=== PATIENT | female | born 1975 | race Caucasian/White ===

== ENCOUNTER 2021-01-24 09:04 | Outpatient (CLI) | payer OTHER, SELFPAY ==
--- NOTE | ~2021-01-24 | CT_ITS ---
EXAMINATION: CT abdomen pelvis w con DATE: 01/24/2021 09:58 INDICATION: Right lower quadrant abdominal pain, pelvic and perineal pain TECHNIQUE: Computed tomography (CT) of the abdomen and pelvis was performed with 100 cc Omnipaque 350 intravenous contrast. Automated exposure control and iterative reconstruction technique were employe d. Exam dose: 390.52 mGy-cm total exam DLP. COMPARISON: None. FINDINGS: The lung bases are clear of infiltrate or consolidation. Normal heart size. No pericardial or pleural effusion. The liver, gallbladder, bile ducts, spleen, pancreas and pancreatic duct appear normal. Normal morphology of the adrenal glands. No renal mass lesion or urinary tract calculus or hydroureteronephrosis. The urinary bladder is unrem arkable. There is uterine enlargement. Prominently calcified approximately 6 cm fibroid of the uterine fundus is noted. Bilateral ovarian follicles are noted. There is mild free fluid in the right adnexal area and anterio r and posterior cul-de-sacs. Normal caliber of the abdominal aorta. No intraperitoneal or retroperitoneal or pelvic mass lesion or adenopathy or ascites is detected. There are some nondilated small bowel segments with air fluid levels. The appendix is not clearly juanito ntified. No bowel obstruction or bowel wall thickening or pneumoperitoneum. There is a transitional lumbosacral vertebra and severe degenerative disc disease at the interspace i mmediately above this level. IMPRESSION: Mild free fluid in the right adnexal area and anterior and posterior cul-de-sacs. Bilate ral ovarian follicular cysts Large calcified uterine fibroid The appendix is not clearly identified; clinical correlation is advised Mild adynamic ileus Reviewed, dictated and finalized at [facility]. Reviewed, dictated and finalized at location [facility]. IMPRESSION: Mild free fluid in the right adnexal area and anterior and posteri or cul-de-sacs. Bilateral ovarian follicular cysts Large calcified uterine fibroid The appendix is not clearly identified; clinical correlation is advised Mild adynamic ileus
== END 2021-01-24 09:05 | disposition home or self-care (01) ==
PROVIDERS: PCP Family Medicine; Visit Provider Nurse Practitioner Obstetrics & Gynecology
DX: R10.2 Pelvic and perineal pain (principal); N83.02 Follicular cyst of left ovary; N83.01 Follicular cyst of right ovary; D25.9 Leiomyoma of uterus, unspecified
CPT/HCPCS: 74177; Q9967

== ENCOUNTER 2022-10-19 19:06 | Emergency (ER) | payer MEDICAID, SELFPAY ==
[2022-10-19 19:14] VITALS: BP 126/59; PULSE 106; RESP 19; TEMP 36.5; O2SAT 98
--- NOTE | 2022-10-19 19:41 | ED.WOUNDLAC ---
HPI - Wound/Laceration General Chief Complaint: Wound/Laceration Stated Complaint: left hand lac (thumb) Time Seen by Provider: 10/19/22 19:32 Source: patient and RN notes reviewed Mode of arrival: ambulatory Limitations: no limitations History of Present Illness HPI narrative: This is a a 47 year old female with right hand dominant who presents for evaluation of left hand laceration. She states she was trying to grab a piece of broken glass and she cut the finger web between her left thumb and index finger. This occurred at 1755. She thinks her last tetanus has been in past 5 years. Denies numbness or tingling. Related Data Home Medications Medication Instructions Recorded Confirmed No Home Medications 12/27/20 12/27/20 Allergies Allergy/AdvReac Type Severity Reaction Status Date / Time No Known Allergies Allergy Verified 12/27/20 13:01 Review of Systems Review of Systems: All systems reviewed & are unremarkable except as noted in HPI and below PMFSH Past Medical History Medical History Acute bronchitis due to other specified organisms Acute upper respiratory infection, unspecified Bipolar 2 disorder Bitten or stung by nonvenomous insect and other nonvenomous arthropods, initial encounter BMI 28.0-28.9,adult Cellulitis of left lower extremity Dietary counseling and surveillance (04/24/15) Encounter for screening for lipoid disorders Left elbow pain Routine physical examination Weight loss Family History Family History Mother Family history of malignant neoplasm of breast in first degree relative Mental disorder Father No problems noted. 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 Gender identity (if verbalized by the patient): Female Exam Const: General: no acute distress and alert Orientation/consciousness: patient oriented x3 HENMT: Head: normal to inspection Eyes: EOM: EOMs intact bilaterally Resp: Effort & Inspection: normal respiratory effort Skin: Wounds: wounds noted (left hand laceration 2 cm web 1st/2nd finger, no ex) Neuro: General: patient oriented x3, moves all extremities and CN's II-XI intact bilaterally Extrem: Other: FROM, irregular laceration to finger web in between 1st and 2nd finger on left hand, no bleeding Psych: Mental Status: mental status grossly normal Affect: normal affect Attitude: cooperative Course Vital Signs Vital signs: Vital Signs Temperature 97.7 F 10/19/22 19:14 Pulse Rate 106 H 10/19/22 19:14 Respiratory Rate 19 10/19/22 19:14 Blood Pressure 126/59 L 10/19/22 19:14 Pulse Oximetry 98 10/19/22 19:14 Oxygen Delivery Room Air 10/19/22 19:14 Temperature 97.4 F L 10/19/22 21:12 Pulse Rate 83 10/19/22 21:12 Respiratory Rate 16 10/19/22 21:12 Blood Pressure 112/58 L 10/19/22 21:12 Pulse Oximetry 97 10/19/22 21:12 Oxygen Delivery Room Air 10/19/22 19:14 Procedures Laceration Laceration 1: Date: 10/19/22 Time: 21:01 Site: hand Side (If applicable): left Size (cm): 2 Description: flap Depth: simple, single layer Local Anesthetic: lidocaine 1% Amount of anesthesia used (mL): 2 Pre-repair: wound explored and irrigated ====== Skin Level ====== Skin layer closed with: prolene Size (cm): 4-0 Number of sutures: 3
[2022-10-19] MEDS: IBUPROFEN 600 MG TABLET PO (19:56)
[2022-10-19 21:12] VITALS: BP 112/58; PULSE 83; RESP 16; TEMP 36.3; O2SAT 97
== END 2022-10-19 21:13 | disposition home or self-care (01) ==
PROVIDERS: Emergency Provider General Practice; PCP Family Medicine
DX: S61.412A Laceration without foreign body of left hand, initial encounter (principal); W25.XXXA Contact with sharp glass, initial encounter; F31.81 Bipolar II disorder; F17.210 Nicotine dependence, cigarettes, uncomplicated
CPT/HCPCS: 12001; 99282; A9270

== ENCOUNTER 2023-11-23 09:53 | Outpatient (CLI) | payer OTHER, SELFPAY ==
[2023-11-23 10:28] LABS: Basophils Percent Auto 0.4 % (0.2-1.2); Eosinophils Absolute Auto 0.2 K/mm3 (0-0.3); Hemoglobin 11.3 g/dL (12.0-15.0); Immature Granulocyte Absolute 0.02 K/mm3 (0.00-0.031); Immature Granulocyte Percent A 0.2 % (0-0.5); Lymphocytes Absolute Auto 2.86 K/mm3 (0.9-3.2); Lymphocytes Percent Auto 31.3 % (18.3-44.2); Mean Corpuscular HGB Conc 32.3 g/dl (32-36); Mean Corpuscular Hemoglobin 26.1 pg (26-34); Mean Corpuscular Volume 80.8 fl (80-100); Monocytes Absolute Auto 0.9 K/mm3 (0.1-0.6); Monocytes Percent Auto 10.2 % (2.6-8.5); Neutrophils Absolute Auto 5.1 K/mm3 (1.3-6.7); Neutrophils Percent Auto 55.9 % (45.5-73.1); Platelet Count Result 303 k/mm3 (150-375); Red Blood Count 4.33 M/mm3 (4.2-5.4); Red Cell Distribution Width 18.8 % (11.5-14.5); White Blood Count 9.2 K/mm3 (4.5-10.0)
[2023-11-23 10:41] LABS: Alanine Aminotransferase 34 U/L (6-35); Albumin Level 4.9 g/dL (3.5-5.1); Alkaline Phosphatase 65 U/L (38-126); Anion Gap 11 mmol/L (4-12); Aspartate Amino Transferase 48 U/L (14-36); Bilirubin,Total 0.6 mg/dL (0.2-1.3); Blood Urea Nitrogen 12 mg/dL (7-17); Calcium 9.1 mg/dL (8.4-10.2); Carbon Dioxide 23 mmol/L (22-30); Chloride 101 mmol/L (98-107); Estimated Glomerular Filt Rate > 60; Glucose 110 mg/dL (65-110); Potassium 3.5 mmol/L (3.4-5.0); Sodium 135 mmol/L (137-145)
[2023-11-23 11:12] LABS: Iron 79 ug/dL (37-170)
[2023-11-23 11:21] LABS: Vitamin D 25 Hydroxy 20.7 ng/mL
[2023-11-23 11:29] LABS: Percent Iron Saturation 21 % (20-50)
[2023-11-24 12:13] LABS: FSH 6.8 mIU/mL; LH 5.7 mIU/mL
[2023-11-24 23:44] LABS: Amphetamines POSITIVE ng/mL (<500); Barbiturates NEGATIVE ng/mL (<300); Benzodiazepines NEGATIVE ng/mL (<100); Cocaine Metabolite NEGATIVE ng/mL (<150); Marijuana Metabolite POSITIVE ng/mL (<20); Methadone Metabolite NEGATIVE ng/mL (<100); Opiates NEGATIVE ng/mL (<100); Oxidant NEGATIVE mcg/mL (<200); pH 5.4 (4.5-9.0)
== END 2023-11-23 09:54 | disposition home or self-care (01) ==
LOC: ANHLAB 09:56
PROVIDERS: PCP Family Medicine; Visit Provider Family Medicine
DX: D64.9 Anemia, unspecified (principal); F41.9 Anxiety disorder, unspecified; E55.9 Vitamin D deficiency, unspecified; N92.0 Excessive and frequent menstruation with regular cycle
CPT/HCPCS: 36415; 80053; 80307; 82306; 82728; 83001; 83002; 83540; 83550; 84443; 85025

== ENCOUNTER 2024-04-07 13:06 | Outpatient (CLI) | payer OTHER, SELFPAY ==
--- OUTSIDE RECORDS SUMMARY | 2024-04-07 13:08 | XMS_ITS ---
Author Organization [facility] [employer] [facility] Address [address] [address] Care Team Providers Care Tool Setter Apprentice Name Role Phone Morgan GIRALDO, Tulio Primary Care Provider Abby Healy Unavailable [phone] Social History Sex Assigned At : Social History Observation Description Sex Assigned At Female Encounters Encounter Location Date Provider Diagnosis [facility] [employer] [place] [id number] [facility] [address] [address] 04/07/2024 Abby Gonzalez Plan Of Treatment Next Appt Details Provider Name:Rogers elena, 04/07/2024 02:00:00 PM, [address] [facility], [address], [address], Provider Name:Abby Gonzalez , 04/07/2024 03:30:00 PM, [address] [facility], [address], [address], Provider Name:Rogers elena, 04/28/2024 03:00:00 PM, [address] [place] [address], [address], Provider Name:Abby Gonzalez , 04/28/2024 04:15:00 PM, [address], [address], [address], Provider Name:Rogers elena, 06/02/2024 03:00:00 PM, [address], [place] [address], [place], [address], Provider Name:Abby Paulino Vicky , 06/02/2024 04:15:00 PM, [address], [place] [address], [place], [address], Progress Notes * Mandy MADSEN DDOB: (48 yo F)Acc No.[id number]:04/07/2024 Patient:?MADSEN Mandy D Provider:?ABBY GONZALEZ MD :1975???Age:48 Y???Sex:Female D ate:04/07/2024 Address:[address] [place] [address] Pcp:Tulio Mora MD Subjective: * Chief Complaints: * ??? * Medical History:? Objective: * Vitals:? Assessment: Plan: * Treatment: * Billing Information: * Visit Code:? * Procedure Codes:? * Electronic signature of Kashif Gonzalez MD on 04/07/2024 at 01:08 PM [employer] PRESIDENT Sign off status: Pending * Provider:?ABBY GONZALEZ MD Date:?04/07 Generated for Trice martinez/Kapil/eTleidasmitting on:?04/07/2024 01:08 PM [employer] PRESIDENT
--- OUTSIDE RECORDS SUMMARY | 2024-04-07 13:09 | XMS_ITS ---
Author Organization [facility] [employer] [facility] Address [address] [facility] [address] [address] Care Team Providers Care Assault Boat Coxswain Name Role Phone Morgan GIRALDO, Tulio Primary Care Provider Philipp Healy Unavailable [phone] Rogers Garcia [phone] Social History Sex Assigned At : Social History Observation Description Sex Assigned At Female Encounters Encounter Location Date Provider Diagnosis [facility] [address] [facility] [address] [address] 04/07/2024 Rogers Garcia Plan Of Treatment Next Appt Details Provider Name:Rogers elena, 04/07/2024 02:00:00 PM, [facility] [address] [facility], [address], [address], Provider Name:Philipp Perry , 04/07/2024 03:30:00 PM, [facility], [address], [address], Provider Name:Rogers elena, 04/28/2024 03:00:00 PM, [facility] [place] [address], [address], [address], Provider Name:Philipp Perry , 04/28/2024 04:15:00 PM, [address], [address], [address], Provider Name:Rogers elena, 06/02/2024 03:00:00 PM, [address], [place] [address], [place], [address], Provider Name:Philipp Jefferson Vicky , 06/02/2024 04:15:00 PM, [address], [place] [address], [place], [address], Progress Notes * Mandy MADSEN DDOB: (48 yo F)Acc No.[id number]:04/07/2024 Patient:?Mandy MADSEN Provider:?Rogers Garcia LCPC :1975???Age:48 Y???Sex:Female D ate:04/07/2024 Address:[address] [place] [address] Pcp:Tulio Mora MD Data: * Chief Complaints: * ??? Assessment: Plan: * Treatment: * Billing Information: * Visit Code:? * Procedure Codes:? * Electronic signature of Brooklyn Garcia LCPC on 04/07/2024 at 01:08 PM RN VASCULAR Sign off status: Pending Signatures: No Ad Hoc Signature Added * Provider:?Rogers aGrcia LCPC Date:?03/2024 Generated for Trice martinez/Kapil/eTransmitting on:?04/07/2024 01:08 PM RN VASCULAR
--- OUTSIDE RECORDS SUMMARY | 2024-04-07 13:09 | XMS_ITS ---
Author Organization [facility] [employer] Address [address] [place] [address] Care Team Providers Care Management Lead Name Role Phone Morgan GIRALDO, Tulio Primary Care Provider Abby Healy Unavailable [phone] Allergies No Known Allergies REASON FOR VISIT Patient is here for the ADHD test. Medications Medication SIG (Take, Route, Frequency, Duration) Notes Start Date End Date Status buPROPion HCl ER (XL) 300 MG 1 tablet in the morning Orally Once a day for 30 days 03/16/2024 Active ARIPiprazole 5 MG TAKE 1 TABLET BY MOUTH EVERY EVENING for 30 Active ALPRAZolam 0.5 MG TAKE 1 TABLET BY MOUTH THREE TIMES DAILY NEEDED FOR ANXIETY Oral for 20 Days F3112,Unavailab le Active Escitalopram Oxalate 20 MG 1 tablet Orally Once a day for 30 days Active ARIPiprazole 5 MG 1 tablet every evening Oral Once a day for 30 days Active buPROPion HCl ER (XL) 150 MG 1 tablet in the morning Orally Once a day for 7 days after one week increase 300 mg 03/16/2024 Active Escitalopram Oxalate 10 MG TAKE HALF A TABLET BY MOUTH ONCE A DAY FOR 8 DAYS, THEN 1 TABLET ONCE A DAY FOR 22 DAYS for 30 Active Social History Sex Assigned At : Social History Observation Description Sex Assigned At Female Problems Problem Type SNOMED Code ICD Code Onset Dates Problem Status W/U Status Risk Notes Problem Attention deficit hyperactivity disorder (933881064) ADHD (attention deficit hyperactivity disorder) (F90.9) Active confirmed Vital Signs Height 63 in 04/01/2024 Height-cm 160.02 cm 04/01/2024 Procedures Procedure Date Ordered Date Performed Result Body Sit e ADHD Testing 04/01/2024 N/A Encounters Encounter Location Date Provider Diagnosis [facility] [address] [place] [address] 04/01/2024 Abby Gonzalez ADHD (attention defi cit hyperactivity disorder) F90.9 Assessments Encounter Date Diagnosis (ICD Code) Assessment Notes Treatment Notes Treatment Clinical Notes Section Notes 04/01/2024 ADHD (attention deficit hyperactivity disorder) (ICD-10 - F90.9) Plan Of Treatment Pending Test Test Name Order Date ADHD Testing 04/01/2024 Next Appt Details Follow Up: 04/07 @ 3:30 PM, Reason: ADHD Test result review Provider Name:Rogers elena, 04/07/2024 02:00:00 PM, [facility] [address], [address], [address], Provider Name:Abby Gonzalez , 04/07/2024 03:30:00 PM, [facility] [address], [address], [address], Provider Name:Rogers elena, 04/28/2024 03:00:00 PM, [facility] [address], [address], [address], Provider Name:Abby Gonzalez , 04/28/2024 04:15:00 PM, [facility] [address], [address], [address], Provider Name:Rogers elena, 06/02/2024 03:00:00 PM, [facility] [address], [address], [address], Provider Name:Abby Gonzalez , 06/02/2024 04:15:00 PM, [facility] [address], [address], [address], Progress Notes * Mandy MADSEN DDOB: (48 yo F)Acc No.[id number]:04/01/2024 Patient:?Mandy MADSEN Provider:?ABBY GONZALEZ MD :1975???Age:48 Y???Sex:Female D ate:04/01/2024 [address] [place] [id number] Pcp:Tulio Mora MD Subjective: * Chief Complaints: * ???1. Patient is here for [facility] ADHD test.. * HPI: ???History of Presenting Problem:? ADHD testing was done.? Patient was identified, and logged into pc. Test was administer in office. Staff supervising the test . * Medical History:?Anemia, Bip olar 1, Bipolar 2, Past Psychiatric History: Anxiety Disorder,Panic Disorder,Major Depressive Episode,Bipolar Disorder. * Medications:?Taking ARIPipra zole 5 MG Tablet 1 tablet every evening Oral Once a day , Taking Escitalopram Oxalate 20 MG Tablet 1 tablet Orally Once a day , Taking ALPRAZolam 0.5 MG Tablet TAKE 1 TABLET BY MOUTH THREE TIMES DAILY NEEDED FOR ANXIETY Oral , Notes to Pharmacist: [id number],Unavailable, Taking ARIPiprazole 5 MG Tablet TAKE 1 TABLET BY MOUTH EVERY EVENING , Taking Escitalopram Oxalate 10 MG Tablet TAKE HALF A TABLET BY MOUTH ONCE A DAY FOR 8 DAYS, THEN 1 TABLET ONCE A DAY FOR 22 DAYS , Taking buPROPion HCl ER (XL) 150 MG Tablet Extended Release 24 Hour 1 tablet in the morning Orally Once a day after one week increase 300 mg, Taking buPROPion HCl ER (XL) 300 MG Tablet Extended Release 24 Hour 1 tablet in the morning Orally Once a day , Medication List reviewed and reconciled with the patient * Allergies:?N.K.D.A. Objective: * Vitals:?Ht: 63 in, Ht-cm: 16 0.02 cm. Assessment: * Assessment: 1.?ADHD (attention deficit h yperactivity disorder) - F90.9??? Plan: * Treatment: * Procedure Orders:? * ?Procedure: ADHD Testing * Procedure Codes:?84639 NEURO PSYCHOLOGICAL TESTING EVALUATION SERVICES FIRST HOUR, 64971 EACH ADDITIONAL 30 MINUTES (ADD-ON CODE), 44038 PSYCHOLOGICAL OR NEUROPSYCHOLOGICAL TEST ADMINISTRATION AND SCORING. * Follow Up:?04/07 @ 3:30 PM ( Reason: ADHD Test result review) * Billing Information: * Visit Code:? * Procedure Codes:? 75696 NEUROPSYCHOLOGICAL TESTING EVALUATION SERVICES FIRST HOUR. 25480 EACH ADDITIONAL 30 MINUTES (ADD-ON CODE). 82924 PSYCHOLOGICAL OR NEUROPSYCHOLOGICAL TEST ADMINISTRATION AND SCORING.. * Electronic signature of Kashif Gonzalez MD on 04/07/2024 at 01:08 PM DIRECTOR OF LAND Sign off status: Pending * Provider:?ABBY GONZALEZ MD Date:?04/01 Generated for Trice martinez/Kapil/eTransmitting on:?04/07/2024 01:08 PM DIRECTOR OF LAND History and Physical Notes * HPI (History of Present Illness) Category Sub-Category Detail Notes Category Not es History of Presenting Problem ADHD testing was done. Patient was identified, and logged into pc. Test was administer in office. Staff supervising the test
--- OUTSIDE RECORDS SUMMARY | 2024-04-07 13:09 | XMS_ITS | Patient Health Record ---
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 Encourage good sleep hygiene and avoidance of stimulants like Red Bull. - Schedule follow-up appointments to assess progress. Medication Management - Assessment: The patient is taking escitalopram, esomeprazole, and olanzapine, with some improvement but significant symptoms persisting. Xanax is not as effective. - Plan: - Increase the dose of escitalopram. - Reduce olanzapine to 2.5 mg for two weeks, then discontinue. - Switch to brexpiprazole 5 mg once a day in the evening. - Monitor for side effects and effectiveness of the new regimen. - Schedule follow-up appointments for adjustments as needed. Therapy - Assessment: The patient is unclear about the therapy process and has never had therapy before. - Plan: - Clarify the difference between psychiatric and therapy appointments. - Assist the patient in scheduling an appointment with a therapist. - Encourage the patient to attend regular therapy sessions. 03/16/2024 Mixed anxiety and depressive disorder (ICD-10 - F41.8) ADHD - Assessment: Patient is being evaluated for ADHD. - Plan: - Conduct ADHD testing before proceeding with treatment. - Consider bupropion for mild ADHD symptoms and motivation. Treatment-Resistan t Depression (TRD) - Assessment: Patient is being considered for Spravato (esketamine) treatment. Patient has some familiarity with ketamine from past experience with her son's treatment. - Plan: - Discuss Spravato (esketamine) as a potential treatment option. - Complete necessary paperwork and rating scales for approval. - Monitor patient's response to treatment if approved. Mood stabilization - Assessment: Patient has a high PHQ-9 score of 27, indicating severe depression. - Plan: - Continue current morning mood stabilizers. - Increase Lexapro (escitalopram) dosage to 20 mg. - Monitor patient's response to increased dosage. Anxiety and depression - Assessment: Patient's anxiety and depression require additional medication management. - Plan: - Consider adding duloxetine or Wellbutrin (bupropion) to the patient's medication regimen. - Start bupropion at 150 mg for one week, then increase to 300 mg. - Monitor for side effects, including anxiety and nervousness. Olanzapine discontinuation - Assessment: Patient reports weight gain concerns and mouth-related side effects with olanzapine. - Plan: - Instruct patient to discontinue olanzapine. - Monitor patient for any withdrawal symptoms or changes in mood. Sexual side effects - Assessment: Patient emphasizes the importance of maintaining a healthy sex life. - Plan: - Monitor patient's sexual function while on bupropion and increased Lexapro dosage. - Adjust medications if necessary to minimize sexual side effects. Grief and self-worth issues - Assessment: Patient reports recent progress in processing grief related to father's 35 years ago. - Plan: - Encourage patient to continue therapy sessions with [facility] to address unresolved grief and self-worth concerns. - Schedule follow-up appointments as needed. Follow-up appointment - Assessment: Patient is currently alternating between [place] and [facility]. - Plan: - Schedule a follow-up appointment for the next month. - If Spravato is approved sooner, call the patient to start treatment earlier. 01/13/2024 Other Learning About Depression Screening material was printed Major Depressive Disorder with Anxiety - Assessment: Patient presents with a long history of depression, anxiety, and periods of high energy lasting one to two days. No clear history of manic episodes lasting more than a week. Differential diagnosis includes Bipolar Type 2. Patient reports childhood trauma related to father's at age 12, which seems to have triggered depressive symptoms. Patient mentions excessive worry, social isolation, and difficulty engaging in activities. - Plan: - Discontinue olanzapine due to excessive sedation. by decreasin to 5 mg po qd till next visit in two week, will further reduce it. - Introduce escitalopram 5 mg, starting with half a tablet for a week, then increasing to one tablet daily. - Monitor for response and side effects. Possible Bipolar Type 2 - Assessment: Patient reports periods of high energy lasting one to two days, but no clear history of manic episodes lasting more than a week. Keep as a differential diagnosis. Dr. Jimenez (PCP) has previously suggested a bipolar diagnosis. - Plan: - Introduce aripiprazole 2 mg once daily in the evening as a mood stabilizer. - Monitor for response and side effects. Medication Management - Assessment: Patient is currently on olanzapine 10 mg, which is causing excessive sedation. Patient reports no previous use of antidepressants and limited experience with psychiatric medications. - Plan: - Taper off olanzapine by cutting the dose in half. - Prescribe escitalopram 5 mg and aripiprazole 2 mg. - Monitor patient's response to new medications and adjust as needed. Counseling - Assessment: Patient has not been in counseling for a long time and is open to trying it again. Previous attempts at counseling were unsuccessful due to difficulty sharing. - Plan: - Encourage patient to seek counseling to address depression, anxiety, and possible childhood trauma. Follow-up - Plan: - Schedule a follow-up appointment in two weeks to monitor patient's response to new medications and discuss any concerns or side effects. Communication with Primary Care Physician - Plan: - Send a note to Dr. Jimenez regarding the patient's visit, assessment, and medication changes. - Patient has an upcoming appointment with Dr. Jimenez on the . Substance Use - Assessment: Patient reports occasional marijuana use and minimal alcohol consumption. - Plan: - Monitor for any impact on treatment response or interactions with prescribed medications. Plan Of Treatment Pending Test Test Name Order Date UDT 01/13/2024 ADHD Testing 04/01/2024 Next Appt Details Provider Name:Rogers elena, 04/07/2024 02:00:00 PM, [address], [facility] [address], [place], [address], Provider Name:Philipp Perry , 04/07/2024 03:30:00 PM, [address], [facility] [address], [place], [address], Provider Name:Rogers elena, 04/28/2024 03:00:00 PM, [address], [place] [address], [place], [address], Provider Name:Philipp Perry , 04/28/2024 04:15:00 PM, [address], [facility] [address], [place], [address], Provider Name:Rogers elena, 06/02/2024 03:00:00 PM, [address], [place] [address], [place], [address], Provider Name:Philipp Perry , 06/02/2024 04:15:00 PM, [address], [place] [address], [place], [address], Insurance Providers Payer Name Payer Address Payer Phone Subscriber Number Group Number Insured Name Patient Relationship to Insured Coverage Start Date Coverage End Date [facility] [address] [place] [phone] [id number] Yonathan on [employer] - patient is the insured Medical (General) History Medical History History ICD Code Anemia Bipolar 1 Bipolar 2 Past Psychiatric History: An xiety Disorder,Panic Disorder,Major Depressive Episode,Bipolar Disorder undefined
[2024-04-07 14:04] LABS: Hematocrit 41.6 % (37.0-47.0); Hemoglobin 12.7 g/dL (12.0-15.0); Mean Corpuscular HGB Conc 30.5 g/dl (32-36); Mean Corpuscular Hemoglobin 24.9 pg (26-34); Mean Corpuscular Volume 81.6 fl (80-100); Platelet Count Result 404 k/mm3 (150-375); Red Cell Distribution Width 17.1 % (11.5-14.5); White Blood Count 10.1 K/mm3 (4.5-10.0)
[2024-04-07 14:14] LABS: Anion Gap 8 mmol/L (4-12); Blood Urea Nitrogen 12 mg/dL (7-17); Calcium 9.3 mg/dL (8.4-10.2); Carbon Dioxide 27 mmol/L (22-30); Chloride 103 mmol/L (98-107); Estimated Glomerular Filt Rate > 60; Glucose 87 mg/dL (65-110); Potassium 3.8 mmol/L (3.4-5.0); Sodium 138 mmol/L (137-145)
[2024-04-07 15:27] LABS: Iron 57 ug/dL (37-170)
[2024-04-07 15:36] LABS: Percent Iron Saturation 13 % (20-50)
[2024-04-07 15:48] LABS: Vitamin D 25 Hydroxy 14.2 ng/mL
[2024-04-07 16:03] LABS: Ferritin 6.07 ng/mL (6.24-137)
== END 2024-04-07 13:07 | disposition home or self-care (01) ==
LOC: ANHLAB 13:06
PROVIDERS: PCP Family Medicine; Visit Provider Family Medicine
DX: D64.9 Anemia, unspecified (principal); E87.1 Hypo-osmolality and hyponatremia; E55.9 Vitamin D deficiency, unspecified
CPT/HCPCS: 36415; 80048; 82306; 82607; 82728; 83540; 83550; 85027